=== PATIENT | male | born 1935 | race Caucasian/White ===

== ENCOUNTER 2018-03-06 12:06 | Inpatient (IN) | payer MEDICARE, OTHER ==
[~2018-03-06] VITALS: Ht 182.9 cm; Wt 109.3 kg
[2018-03-06] VITALS (25 sets, daily range): BP systolic 69–105; BP diastolic 43–82; BMI 13.8
--- NOTE | ~2018-03-06 | CN ---
PATIENT NAME:MARIA ELENA REILLY MEDICAL RECORD: [id number] : 31 LOCATION:[id number] ADMIT DATE: 03/06/18 ACCOUNT: [id number] CONSULTING PHYSICIAN: CORWIN SILVA MD REFERRING PHYSICIAN: FOSTER ROMERO MD DATE OF CONSULTATION: 03/06/2018 CONSULT REQUESTING PHYSICIAN: Foster Romero MD REASON FOR CONSULTATION: Vent management, acute mental status changes, diabetic ketoacidosis, sepsis, and acute renal failure. HISTORY OF PRESENT ILLNESS: Mr. Reilly is an 82-year-old gentleman now who is orally intubated and unresponsive. The history was taken by reviewing the patient's note and talking to the patient's nephew. According to the nephew, the last time he was seen was last Sunday and he was doing well. Today, he went to his house and the patient was found today slumped against the wall and unresponsive, brought into the ER and intubated. The patient has severe metabolic abnormalities as well as hyperglycemia with blood sugar of 1200 and acute renal failure. REVIEW OF THE SYSTEMS: The detail is not obtainable. PAST MEDICAL HISTORY: 1. Diabetes mellitus. 2. Hypertension. PAST SURGICAL HISTORY: Not obtainable. ALLERGIES: No known drug allergies. MEDICATIONS: [employer] is reviewed. PERSONAL AND SOCIAL HISTORY: The detail is not obtainable. He is nondrinker. FAMILY HISTORY: Noncontributory. PHYSICAL EXAMINATION: GENERAL: Now, the patient is orally intubated and sedated. VITAL SIGNS: The blood pressure is 95 to 109 over 58, pulse is 72-113, respiration is 16-24, temperature is 92.8. The patient is on assist control mechanical ventilation. HEENT: Conjunctivae are pale. The sclerae are not icteric. The pupils are constricted and sluggishly reactive to light. NECK: Neck is supple. No JVD. CHEST: There are bilateral crackles. No wheezing. HEART: Rate and rhythm are regular. Normal sound. No murmur. ABDOMEN: Abdomen is soft. Bowel sounds present. No hepatosplenomegaly. RECTAL: Deferred. EXTREMITIES: No cyanosis. No clubbing. There is 2+ pedal edema. SKIN: The skin is warm. Normal turgor. CENTRAL NERVOUS SYSTEM: There is no obvious cranial nerve abnormality. The patient is orally intubated and unresponsive. LABORATORY DATA: CBC; WBC 10.2, hemoglobin 13.4, hematocrit 43.9, and platelet CONSULT REPORT [id number] MARIA ELENA REILLY count is 136. The neutrophils are 85.6%. ABG; the pH is 7.151, CO2 is 51.8, the pO2 is 155, and bicarb 18.1. Lactic acid 1.74. Chemistry; sodium 147, potassium 5.3, chloride 104, BUN is 161, creatinine 6.2, and the glucose is 1231. Magnesium of 3.9. The troponin is 0.329. ProBNP is 3042. The liver enzymes are within normal range. IMPRESSION: 1. Kpews-ma-kbfpclh hypoxic hypercapnic respiratory failure, metabolic and respiratory acidosis. 2. Septic shock. 3. Acute renal failure. 4. Mental status changes secondary to metabolic encephalopathy. 5. Dehydration. 6. Hyperkalemia. 7. Hypernatremia. 8. Diabetic ketoacidosis. 9. Hypothermia. 10. Elevated cardiac enzymes consistent with acute MA. RECOMMENDATION: 1. We will continue assist control mechanical ventilation and adjust the setting. 2. DVT and GI bleed prophylaxes. 3. Discontinue Rocephin. Start on Levaquin and cefepime. 4. Amy hug for hypothermia. 5. Fluid resuscitation per nephrology. 6. Sliding scale insulin and diabetic ketoacidosis protocol. 7. Followup labs and chest radiograph. I had a detailed discussion with the patient's nephew. The critical care time was one hour. Dr. Romero, thank you for involving me in the care of Mr. Reilly. TRANSINT:[id number] Voice Confirmation ID: [id number] DOCUMENT ID: [id number] CORWIN SILVA MD at 1234 CC: [id number] DICTATION DATE: 03/06/181828 ROVING OR YARN COLOR CHECKER: 03/06/181928 DIS IN 03/08/18 [address] [place] [address]
[2018-03-06] MEDS ORDERED: BAYER CHEWABLE81 MG PO (12:27)
[2018-03-06] MEDS ORDERED: ELIQUIS2.5 MG PO (12:27)
[2018-03-06] MEDS ORDERED: LOTENSIN 10 MG10 MG PO (12:28)
[2018-03-06] MEDS ORDERED: COREG12.5 MG PO (12:29)
[2018-03-06] MEDS ORDERED: LIPITOR40 MG PO (12:29)
[2018-03-06] MEDS ORDERED: NEURONTIN 300300 MG PO (12:30)
[2018-03-06] MEDS ORDERED: NORCO 10-325 TA1 TAB PO (12:30)
[2018-03-06] MEDS ORDERED: GLIPIZIDE10 MG PO (12:30)
[2018-03-06] MEDS ORDERED: FISH OIL 1,0001 CA1 PO (12:30)
[2018-03-06] MEDS ORDERED: OMEPRAZOLE20 M1 PO (12:31)
[2018-03-06] MEDS ORDERED: MAXZIDE 75/501 TAB PO (12:31)
[2018-03-06] MEDS ORDERED: VICTOZA0.6 MG/0.1 SQ (12:31)
[2018-03-06 12:33] LABS: BASOPHILS 0.1 % (0-2); EOSINOPHILS 0 % (0-7); HEMATOCRIT 43.9 % (42.0-54.0); HEMOGLOBIN 13.4 g/dL (13.5-17.5); IMMATURE GRANULOCYTES 0.6 % (0-5); LYMPHOCYTES 8.4 % (15-50); MCH 32.9 pg (26.0-34.0); MCHC 30.5 g/dL (31.0-37.0); MCV 107.9 fL (80.0-100.0); MONOCYTES 5.3 % (2-11); NEUTROPHILS 85.6 % (40-80); PLATELET COUNT 136 10x3/uL (130-400); RBC 4.07 10x6/uL (4.20-6.10); RDW 13.5 % (11.5-14.5); WBC 10.2 10x3/uL (4.8-10.8)
[2018-03-06 12:52] LABS: ALBUMIN 2.4 g/dL (3.4-5.0); ALKALINE PHOSPHATASE 108 U/L (46-116); ALT (SGPT) 33 U/L (10-68); BILIRUBIN - TOTAL 0.53 mg/dL (0.2-1.3); CALCIUM 8.3 mg/dL (8.5-10.1); CARBON DIOXIDE 20.3 mmol/L (21.0-32.0); CHLORIDE - SERUM 104 mmol/L (98-107); CREATININE - SERUM 6.2 mg/dL (0.6-1.3); POTASSIUM - SERUM 5.3 mmol/L (3.5-5.1); PROTEIN - SERUM 5.5 g/dL (6.4-8.2); SODIUM 147 mmol/L (136-145); eGFR NON AFRICAN AMERICAN 9 mL/min (90-120)
[2018-03-06 12:53] LABS: APTT 21.7 SECONDS (22.8-39.4); INR 1.22 (0.85-1.17)
[2018-03-06 12:54] LABS: CALC OSMOLALITY 403 mosm/kg (275-300); UREA NITROGEN 161 mg/dL (7-18)
[2018-03-06 13:10] LABS: AMYLASE - SERUM 148 U/L (25-115); CKMB 20.4 U/L (0.0-3.6); CREATINE KINASE 457 UL (21-232); PRO BNP 3042 pg/mL (0-450)
[2018-03-06 13:15] LABS: LIPASE 2511 U/L (73-393)
[2018-03-06 13:44] LABS: GLUCOSE 1231 mg/dL (74-106); MAGNESIUM - SERUM 3.9 mg/dL (1.8-2.4); TROPONIN-I 0.329 ng/mL (0.000-0.060)
[2018-03-06 13:51] LABS: APPEARANCE CLEAR (CLEAR); BACTERIA MODERATE /hpf (NONE SEEN); BILIRUBIN NEGATIVE (NEGATIVE); COLOR YELLOW (YELLOW); EPITHELIAL CELLS 0-5 /hpf (0-5); GLUCOSE 1000 mg/dL (NEGATIVE); HYALINE CAST 0-5 /lpf (NONE SEEN); KETONE SMALL mg/dL (NEGATIVE); NITRITE NEGATIVE (NEGATIVE); PROTEIN 2+ mg/dL (NEGATIVE); UROBILINOGEN NORMAL (NORMAL); WHITE CELLS - URINE 0-5 /hpf (0-5)
[2018-03-06 13:55] LABS: UDS - AMPHET NEGATIVE QUAL (NEGATIVE); UDS - BARB NEGATIVE QUAL (NEGATIVE); UDS - BENZO NEGATIVE QUAL (NEGATIVE); UDS - COCAINE NEGATIVE QUAL (NEGATIVE); UDS - OPIATE NEGATIVE QUAL (NEGATIVE); UDS - PCP NEGATIVE QUAL (NEGATIVE); UDS - THC NEGATIVE QUAL (NEGATIVE)
[2018-03-06 22:03] LABS: TROPONIN-I 0.644 ng/mL (0.000-0.060)
[2018-03-07] VITALS (64 sets, daily range): BP systolic 62–175; BP diastolic 7–85; Ht 182.9 cm; Wt 109.3 kg
[2018-03-07 04:19] LABS: BASOPHILS 0.1 % (0-2); EOSINOPHILS 0 % (0-7); HEMATOCRIT 35.5 % (42.0-54.0); HEMOGLOBIN 12.2 g/dL (13.5-17.5); IMMATURE GRANULOCYTES 0.7 % (0-5); LYMPHOCYTES 9.2 % (15-50); MCH 33.2 pg (26.0-34.0); MCHC 34.4 g/dL (31.0-37.0); MEAN PLATELET VOLUME 12.7 fL (7.4-10.4); PLATELET COUNT 118 10x3/uL (130-400); RBC 3.68 10x6/uL (4.20-6.10); RDW 13.3 % (11.5-14.5); WBC 10.8 10x3/uL (4.8-10.8)
[2018-03-07 04:26] LABS: MCV 96.5 fL (80.0-100.0)
[2018-03-07 04:48] LABS: ALBUMIN 1.8 g/dL (3.4-5.0); ALKALINE PHOSPHATASE 89 U/L (46-116); BILIRUBIN - TOTAL 0.53 mg/dL (0.2-1.3); CKMB 19.9 U/L (0.0-3.6); PROTEIN - SERUM 5.1 g/dL (6.4-8.2)
[2018-03-07 05:28] LABS: ALT (SGPT) 37 U/L (10-68); CREATINE KINASE 1184 UL (21-232)
[2018-03-07 05:29] LABS: AMYLASE - SERUM 91 U/L (25-115); CALC OSMOLALITY 385 mosm/kg (275-300); CREATININE - SERUM 6.3 mg/dL (0.6-1.3); GLUCOSE 311 mg/dL (74-106); LIPASE 1332 U/L (73-393); UREA NITROGEN 163 mg/dL (7-18); eGFR NON AFRICAN AMERICAN 9 mL/min (90-120)
[2018-03-07 05:30] LABS: CALCIUM 7.6 mg/dL (8.5-10.1); POTASSIUM - SERUM 4.2 mmol/L (3.5-5.1)
[2018-03-07 05:31] LABS: CHLORIDE - SERUM 117 mmol/L (98-107); SODIUM 162 mmol/L (136-145)
[2018-03-08] VITALS: BP 52/29
[2018-03-08 01:00] VITALS: BP 53/28
== END 2018-03-08 01:35 | DRG 871 ==
LOC: D.ER 12:06 → D.ICU 13:46
PROVIDERS: Family Medicine; Internal Medicine
PROC: 5A1945Z Respiratory Ventilation, 24-96 Consecutive Hours (ICD-10-PCS; principal; 2018-03-06)
PROC: 0BH17EZ Insertion of Endotracheal Airway into Trachea, Via Natural or Artificial Opening (ICD-10-PCS; 2018-03-06)
PROC: 05H533Z Insertion of Infusion Device into Right Subclavian Vein, Percutaneous Approach (ICD-10-PCS; 2018-03-06)
DX: A41.9 Sepsis, unspecified organism (principal); R65.21 Severe sepsis with septic shock; J96.21 Acute and chronic respiratory failure with hypoxia; J96.22 Acute and chronic respiratory failure with hypercapnia; E11.10 Type 2 diabetes mellitus with ketoacidosis without coma; K85.90 Acute pancreatitis without necrosis or infection, unspecified; G93.41 Metabolic encephalopathy; N17.9 Acute kidney failure, unspecified; E87.2 Acidosis; E87.0 Hyperosmolality and hypernatremia; M62.82 Rhabdomyolysis; I10 Essential (primary) hypertension; E86.0 Dehydration; E87.5 Hyperkalemia; T68.XXXA Hypothermia, initial encounter